=== PATIENT | female | born 1995 | race Caucasian/White ===

== ENCOUNTER 2018-12-07 11:12 | Outpatient (CLI) | payer OTHER ==
[2018-12-07] MEDS ORDERED: GADOPENTETATE DIMEGLUMINE 15 ML VIAL IV ONE (11:38)
== END 2018-12-07 20:54 | disposition home or self-care (01) ==
LOC: SMI 11:12
PROVIDERS: ATTEND Psychiatry & Neurology Neurology with Special Qualifications in Child Neurology
DX: J34.2 Deviated nasal septum (principal)
CPT/HCPCS: 70553; A9579